=== PATIENT | female | born 1975 | race Caucasian/White ===

== ENCOUNTER 2020-12-24 20:26 | Emergency (ER) | payer OTHER ==
[~2020-12-24 20:26] MED LIST: IBUPROFEN600 MG PO
[2020-12-24 21:00] LABS: HEMOGLOBIN 14.8 gm/dl (12.3-15.3); RED BLOOD COUNT 5.11 M/UL (4.00-5.10); WHITE BLOOD COUNT 9.4 K/UL (4.5-11.0)
[2020-12-24 21:18] LABS: BUN/CREATININE RATIO 13 (0-10)
== END 2020-12-25 02:00 | disposition short-term general hospital (02) ==
LOC: ER1 20:26
PROVIDERS: Physician Assistant; Physician Assistant Medical
DX: G45.9 Transient cerebral ischemic attack, unspecified (principal); F19.10 Other psychoactive substance abuse, uncomplicated; R07.9 Chest pain, unspecified; I10 Essential (primary) hypertension; Z90.89 Acquired absence of other organs; Z88.8 Allergy status to other drugs, medicaments and biological substances; Z79.899 Other long term (current) drug therapy; F17.210 Nicotine dependence, cigarettes, uncomplicated; Z86.73 Personal history of transient ischemic attack (TIA), and cerebral infarction without residual deficits
CPT/HCPCS: 70450; 71045; 80053; 80307; 82550; 82553; 83874; 84484; 85025; 93005; 99284

== ENCOUNTER 2021-04-29 14:54 | Emergency (ER) | payer OTHER | END 2021-04-29 16:39 | disposition home or self-care (01) | LOC: ER1 14:54 | DX: J06.9 Acute upper respiratory infection, unspecified (principal); Z20.822 Contact with and (suspected) exposure to COVID-19; J45.909 Unspecified asthma, uncomplicated; J44.9 Chronic obstructive pulmonary disease, unspecified; F17.200 Nicotine dependence, unspecified, uncomplicated; I10 Essential (primary) hypertension; Z90.49 Acquired absence of other specified parts of digestive tract | CPT/HCPCS: 71045; 99283; U0002 ==

== ENCOUNTER 2022-01-15 20:39 | Emergency (ER) | payer OTHER ==
[2022-01-15 22:24] LABS: HEMOGLOBIN 14.5 gm/dl (12.3-15.3); RED BLOOD COUNT 4.94 M/UL (4.00-5.10); WHITE BLOOD COUNT 11.5 K/UL (4.5-11.0)
[2022-01-15 22:49] LABS: BUN/CREATININE RATIO 13 (0-10)
== END 2022-01-16 01:15 | disposition home or self-care (01) ==
LOC: ER1 20:39
PROVIDERS: Physician Assistant
DX: R07.89 Other chest pain (principal); I10 Essential (primary) hypertension; G62.9 Polyneuropathy, unspecified; F17.210 Nicotine dependence, cigarettes, uncomplicated; Z90.49 Acquired absence of other specified parts of digestive tract; Z51.81 Encounter for therapeutic drug level monitoring
CPT/HCPCS: 71045; 80053; 81001; 82550; 82553; 83880; 84484; 84703; 85025; 85610; 85730; 93005; 99283